=== PATIENT | male | born 1995 | race Hispanic/Latino ===

== ENCOUNTER 2016-04-18 07:05 | Day surgery (SDC) | payer OTHER ==
[~2016-04-18] VITALS: Ht 185.4 cm; Wt 138.3 kg
[~2016-04-18 07:05] MED LIST: 0.9% Sodium Chloride 1,000 ML IV SCH; PANT20TA2 PO; PROC10TA PO; Sodium Chloride LOK Flush 10 mL Syringe IV PRN; fentaNYL-PF 50 mCg/mL 2 mL Inj IVPUSH PRN
[2016-04-18 07:34] VITALS: BP 128/76; PULSE 74; RESP 14; O2SAT 98
[2016-04-18] MEDS ORDERED: ACET-171 PO (07:37)
[2016-04-18 08:16] VITALS: BP 145/68; PULSE 80; RESP 16; O2SAT 98
[2016-04-18 08:26] VITALS: BP 134/79; PULSE 79; RESP 16; O2SAT 98
--- NOTE | 2016-04-18 09:17 | ENDO ---
[address] [address] ENDOSCOPY PROCEDURE PATIENT: PREM CANTOR : 1995 MR#: [id number] ADMIT: 04/18/2016 JOB ID: [id number] DATE: 04/18/2016 PROCEDURE: Esophagogastroduodenoscopy. INDICATION: Patient with dysphagia. The patient's ASA classification is 1. Mallampati score is 2. MEDICATIONS: 1. Versed 5 mg. 2. Fentanyl 100 mcg. INSTRUMENT USED: GIF H 180 J. PROCEDURE DETAILS: After informed consent was obtained, the patient was brought into the GI suite, where he was placed on oxygen via nasal cannula and monitored with continuous pulse oximeter, telemetry and blood pressure monitoring. A time-out was performed. Then, he was placed in the left lateral decubitus position. A bite block was placed. The standard EGD scope was inserted through the bite block and advanced under direct visualization to the second portion of the duodenum without difficulty. FINDINGS: 1. Normal appearing duodenal bulb, first and second portion. Multiple random biopsies were obtained. 2. Normal appearing pylorus and antrum. In the body of stomach, there was some mild erythema. Multiple random biopsies were obtained throughout the antrum and body of the stomach. 3. Retroflexed views in the gastric body revealed a normal-appearing cardia and fundus. 4. 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 Multiple random biopsies were obtained. 5. Secondary to the patient's complaint of dysphagia, multiple random biopsies were obtained in the mid esophagus to rule out eosinophilic esophagitis. IMPRESSION: 1. Mild gastritis. 2. Irregular gastroesophageal junction suggestive of Mei's. RECOMMENDATIONS: 1. Continue PPI. 2. Await biopsy results. 3. Followup in GI clinic in 2-4 weeks. COMPLICATIONS: None. ESTIMATED BLOOD LOSS: Less than 5 mL.
--- NOTE | 2016-04-21 12:19 | PATH ---
SURGICAL PATHOLOGY Attending Physician:Chrystal Figueroa CASE STATUS: Signed Out PATIENT NAME: PREM CANTOR PID: [id number] : 1995 DATE COLLECTED:04/18/2016 00:00 SPECIMEN: 1: Duodenum, Biopsy 2: Gastric, Biopsy 3: Esophagus, Biopsy 4: Esophagus, Biopsy CLINICAL HISTORY: A: DUODENAL BIOPSY B: GASTRIC BODY BIOPSY C: DISTAL ESOPHAGUS BIOPSY D: MID-ESOPHAGUS BIOPSY FINAL DIAGNOSIS: 1.DUODENAL BIOPSY: FOCAL CHANGES CONSISTENT WITH CHRONIC DUODENITIS WITH FOCAL AREAS OF FOVEOLAR METAPLASIA. Negative for evidence of celiac disease. Negative for dysplasia and malignancy. 2.GASTRIC BODY BIOPSY: SUPERFICIAL MUCOSAL HYPEREMIA WITHOUT ASSOCIATED SIGNIFICANT INFLAMMATION INVOLVING GASTRIC FUNDIC MUCOSA. Negative for evidence of Helicobacter. Negative for intestinal metaplasia. Negative for dysplasia and malignancy. 3.DISTAL ESOPHAGUS BIOPSY: FRAGMENTS OF SQUAMOUS MUCOSA AND GASTRIC CARDIA-TYPE MUCOSA WITH CHRONIC INFLAMMATION, REACTIVE EPITHELIAL CHANGES, AND SCATTERED EOSINOPHILS PRESENT WITHIN THE SQUAMOUS EPITHELIUM (CHANGES CONSISTENT WITH CHRONIC REFLUX). Negative for specialized metaplasia of Mei' s-type esophagus. Negative for dysplasia and malignancy. 4.MID ESOPHAGUS BIOPSY: FRAGMENTS OF SQUAMOUS EPITHELIUM, NEGATIVE FOR ATYPIA. Eosinophils are not increased. ICD10 code K21.0 GROSS DESCRIPTION: The specimen is received in four formalin filled containers labeled with the patient's name. 1). The specimen is sublabeled "duodenal" and consists of 5 portions of tissue which aggregate to 0.4 x 0.4 x 0.3 CM. The specimen is entirely submitted in cassette 1A. 2). The specimen is sublabeled "gastric body" and consists of 5 fragments of tissue which aggregate to 0.6 x 0.6 x 0.3 CM. The specimen is entirely submitted in cassette 2A. 3). The specimen is sublabeled "distal esophagus" and consists of 2 portions of tissue which aggregate to 0.2 x 0.2 x 0.2 CM. The specimen is entirely submitted in cassette 2A. 4). The specimen is sublabeled "mid esophageal" and consists of 3 portions of tissue which aggregate to 0.4 x 0.4 x 0.2 CM. The specimen is entirely submitted in cassette 4A. 04/18/2016 DAC MICRO DESCRIPTION: See diagnosis. ICD-9 CODES: CPT CODES: 1: 29668 2: 72657 3: 13847 4: 77804 Electronically Signed Out Ernesto Parra MD [facility] [address], [place] [address] Technical component performed at [facility], [address], [place], [address]
== END 2016-04-18 23:59 | disposition home or self-care (01) ==
LOC: END 07:05 → MERGE 07:05 → END 23:59
PROVIDERS: ATTEND Internal Medicine Gastroenterology
DX: K29.80 Duodenitis without bleeding (principal); K21.0 Gastro-esophageal reflux disease with esophagitis; R13.10 Dysphagia, unspecified; Z79.899 Other long term (current) drug therapy
CPT/HCPCS: 43239; J2250; J7030